=== PATIENT | male | born 1995 ===

== ENCOUNTER 2023-04-09 09:31 | Outpatient (CLI) | payer MEDICARE, MEDICAID, SELFPAY | END 2023-04-09 09:32 | disposition home or self-care (01) | LOC: ANHAUDIO 09:34 | PROVIDERS: PCP Nurse Practitioner Family; Visit Provider Nurse Practitioner Family | DX: Z01.10 Encounter for examination of ears and hearing without abnormal findings (principal) | CPT/HCPCS: 99199 ==